=== PATIENT | male | born 1960 | race Caucasian/White ===

== ENCOUNTER 2022-10-01 12:59 | Emergency (ER) | payer BC ==
[2022-10-01] MEDS ORDERED: Sodium Chloride 0.9% 1,000 ML IV ONE ×2 (13:00→14:04)
[2022-10-01] MEDS ORDERED: Labetalol 100 MG/20 ML MDV IVPUSH ONE (13:48)
[2022-10-01 13:59] LABS: ANION GAP 13.7 mmol/L (5-15)
[2022-10-01] MEDS ORDERED: Sodium Chloride 0.9% 1,000 ML ONE (14:03)
[2022-10-01] MEDS ORDERED: Bacitracin/Neomycin/Polymyxin B Oint 0.9 GM U/D Packet TOP ONE (15:16)
[2022-10-01] MEDS ORDERED: Bacitracin/Neomycin/Polymyxin B Oint 0.9 GM U/D Packet ONE (15:18)
[2022-10-01] MEDS ORDERED: Sodium Chloride 0.9% 1,000 ML IV SCH (16:00)
== END 2022-10-01 18:15 ==
LOC: KA.ED 12:59
DX: T79.6XXA Traumatic ischemia of muscle, initial encounter (principal); G91.9 Hydrocephalus, unspecified
CPT/HCPCS: 36415; 51702; 70450; 71045; 73560-RT; 80053; 80307; 81001; 82550; 83605; 83880; 84484; 85025; 93010; 96361; 96374; 99284; 99285-25; J3490; J7030

== ENCOUNTER 2024-07-31 09:00 | Emergency (ER) | payer BC ==
[2024-07-31 09:24] LABS: BASOPHILS ABSOLUTE AUTO 0.02 10^3/uL (0.00-0.10); BASOPHILS PERCENT AUTO 0.2 % (0.0-1.0); EOSINOPHILS ABSOLUTE AUTO 0.12 10^3/uL (0.10-0.30); EOSINOPHILS PERCENT AUTO 1.1 % (1.0-3.0); HEMATOCRIT 39.5 % (40.0-52.0); HEMOGLOBIN 13.1 g/dL (13.0-17.0); IMMATURE GRAN ABSOLUTE AUTO 0.01 10^3/uL (0.00-0.04); IMMATURE GRAN PERCENT AUTO 0.1 % (0.0-0.4); LYMPHOCYTES ABSOLUTE AUTO 1.61 10^3/uL (1.00-4.00); LYMPHOCYTES PERCENT AUTO 14.7 % (20.0-40.0); MEAN CORPUSCULAR HEMOGLOBIN 28.6 pg (27.0-31.0); MEAN CORPUSCULAR HGB CONC 33.2 g/dL (32.0-36.0); MEAN CORPUSCULAR VOLUME 86.2 fL (82.0-92.0); MEAN PLATELET VOLUME 9.3 fL (7.4-10.4); MONOCYTES ABSOLUTE AUTO 0.63 10^3/uL (0.10-0.80); MONOCYTES PERCENT AUTO 5.7 % (2.0-8.0); NEUTROPHILS ABSOLUTE AUTO 8.58 10^3/uL (2.50-7.00); NEUTROPHILS PERCENT AUTO 78.2 % (50.0-70.0); PLATELET COUNT,PLT 377 10^3/uL (150-400); RED BLOOD CELL COUNT 4.58 10^6/uL (4.50-6.00); RED CELL DISTRIBUTION WIDTH 14.1 % (11.5-14.5); WHITE BLOOD CELL COUNT,WBC 10.97 10^3/uL (5.00-10.00)
[2024-07-31 09:47] LABS: ALBUMIN 2.78 g/dL (3.40-5.00); ANION GAP 15.9 mmol/L (5-15); BILIRUBIN TOTAL 0.9 mg/dL (0.2-1.0); C-REACTIVE PROTEIN 1.41 mg/dL (0.00-0.50); CALCIUM 8.7 mg/dL (8.7-10.3); CARBON DIOXIDE,CO2 23.2 mmol/L (21.0-32.0); CREATININE 1.25 mg/dL (0.51-1.17); EST CRCL DRUG DOSING (CG) 65.53 mL/min; POTASSIUM,K 4.1 mmol/L (3.5-5.1)
[2024-07-31] MEDS ORDERED: Sodium Chloride 0.9% 10 ML Syringe FLUSH PRN (10:15)
[2024-07-31 10:28] LABS: PROTHROMBIN TIME 11.4 SEC (8.9-13.4); PTT,PARTIAL THROMBOPLSTIN TIME 27.8 SEC (21.6-32.4)
[2024-07-31] MEDS: Sodium Chloride 0.9% 1,000 ML IV ONE (10:36)
== END 2024-07-31 11:45 | disposition home or self-care (01) ==
LOC: KA.ED 09:00
DX: R04.0 Epistaxis (principal); E86.0 Dehydration; R60.9 Edema, unspecified; I48.91 Unspecified atrial fibrillation; I50.9 Heart failure, unspecified; E78.00 Pure hypercholesterolemia, unspecified; K21.9 Gastro-esophageal reflux disease without esophagitis; Z86.73 Personal history of transient ischemic attack (TIA), and cerebral infarction without residual deficits; E66.9 Obesity, unspecified; Z79.899 Other long term (current) drug therapy; Z79.01 Long term (current) use of anticoagulants
CPT/HCPCS: 36415; 71045; 80053; 85025; 85610; 85730; 86140; 96360; 99283; J7030